=== PATIENT | male | born 1970 | race Caucasian/White ===

== ENCOUNTER 2018-09-12 17:40 | Emergency (ER) | payer OTHER ==
[~2018-09-12] VITALS: Ht 200.7 cm; Wt 86.4 kg
[2018-09-12 17:44] VITALS: PULSE 65; RESP 16; Ht 200.7 cm; Wt 86.4 kg
--- NOTE | 2018-09-12 18:06 | ERD ---
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 Small minimal wound, over the right thumb. Patient has no major medic al problems, and the source patient has no known significant history. ROS All systems reviewed and are negative except as per history of present illness. Physical Exam Vitals Vital Signs Date Temp Pulse Resp B/P (MAP) Pulse Ox O2 O2 Flow FiO2 Time Delivery Rate 09/12/18 17:44 Physical Exam Const: Well-developed well-nourished Head: Atraumatic Eyes: Normal conjunctiva ENT: Normal external ears, nose and mouth. Neck: Resp: Normal respiratory effort Cardio: Abd: Skin: Right distal thumb bandaged, cap refill less than 2 seconds Back: Ext: Neur: Awake and alert Psych: Normal mood and affect Procedures/MDM 48-year-old male presents for needlestick injury, lab work ordered, and patient to follow-up with employee health, no other concerns, patient able to return back to work. Departure Diagnosis: Primary Impression: Needlestick injury accident Condition: Stable KEREN CHAVEZ MD Sep 12, 2018 18:06
== END 2018-09-12 18:50 | disposition home or self-care (01) ==
LOC: E/R 17:40
DX: S61.031A Puncture wound without foreign body of right thumb without damage to nail, initial encounter (principal); I10 Essential (primary) hypertension; W46.0XXA Contact with hypodermic needle, initial encounter; Y92.230 Patient room in hospital as the place of occurrence of the external cause
CPT/HCPCS: 80076; 83036; 85025; 86703; 86706; 86803; 87340; 99283